=== PATIENT | female | born 1945 | race African-American/Black ===

== ENCOUNTER 2023-11-08 17:25 | Emergency (ER) | payer MEDICARE, MEDICAID ==
[2023-11-08] MEDS ORDERED: Acetaminophen 500 MG TAB ONE ×2 (17:52→17:55)
== END 2023-11-08 18:29 | disposition home or self-care (01) ==
LOC: CSHERS 17:25
DX: M25.511 Pain in right shoulder (principal); E11.9 Type 2 diabetes mellitus without complications; I10 Essential (primary) hypertension